=== PATIENT | female | born 1980 ===

== ENCOUNTER 2021-09-22 08:24 | Outpatient (CLI) | payer OTHER | END 2021-09-22 09:38 | disposition home or self-care (01) | LOC: PRENATAL 08:24 | PROVIDERS: ATTEND Obstetrics & Gynecology Maternal & Fetal Medicine | DX: O34.11 Maternal care for benign tumor of corpus uteri, first trimester (principal); O36.80X1 Pregnancy with inconclusive fetal viability, fetus 1; O09.511 Supervision of elderly primigravida, first trimester; Z36.89 Encounter for other specified antenatal screening; Z3A.12 12 weeks gestation of pregnancy ==

== ENCOUNTER 2021-11-12 08:16 | Outpatient (CLI) | payer OTHER | END 2021-11-12 09:16 | disposition home or self-care (01) | LOC: PRENATAL 08:16 | PROVIDERS: ATTEND Obstetrics & Gynecology Maternal & Fetal Medicine | DX: O35.0XX1 Maternal care for (suspected) central nervous system malformation in fetus, fetus 1 (principal); O35.3XX1 Maternal care for (suspected) damage to fetus from viral disease in mother, fetus 1; O98.512 Other viral diseases complicating pregnancy, second trimester; O09.512 Supervision of elderly primigravida, second trimester; Z36.89 Encounter for other specified antenatal screening; Z3A.20 20 weeks gestation of pregnancy ==

== ENCOUNTER 2022-02-01 10:36 | Outpatient (CLI) | payer OTHER | END 2022-02-01 11:15 | disposition home or self-care (01) | LOC: PRENATAL 10:36 | PROVIDERS: ATTEND Obstetrics & Gynecology Maternal & Fetal Medicine | DX: O26.849 Uterine size-date discrepancy, unspecified trimester (principal); O09.519 Supervision of elderly primigravida, unspecified trimester; Z3A.32 32 weeks gestation of pregnancy ==

== ENCOUNTER 2022-03-24 17:44 | Inpatient (IN) | payer OTHER ==
[~2022-03-24] VITALS: Ht 160 cm; Wt 2.7 kg
[2022-03-24] MEDS ORDERED: PRENATAL TABLE1 EAC1 PO (18:37)
[2022-03-28] MEDS ORDERED: PERCOCET 5-3251 EACH PO (15:04)
[2022-03-28] MEDS ORDERED: COLACE100 MG PO (15:04)
[2022-03-28] MEDS ORDERED: IBUPROFEN800 MG PO (15:04)
[2022-03-28] MEDS ORDERED: SIMETHICONE80 MG PO (15:04)
== END 2022-03-28 15:27 | disposition home or self-care (01) | DRG 788 ==
LOC: LDR 17:44 → OB/GYN 03-25 22:04 → O/R 03-25 22:12 → LDR 03-25 22:22 → SURG-SUITE 03-26 14:33
PROVIDERS: ADMIT Obstetrics & Gynecology; ATTEND Obstetrics & Gynecology
PROC: 4A1HXCZ Monitoring of Products of Conception, Cardiac Rate, External Approach (ICD-10-PCS; 2022-03-24)
PROC: 10D00Z1 Extraction of Products of Conception, Low, Open Approach (ICD-10-PCS; principal; 2022-03-25 19:45)
DX: O62.0 Primary inadequate contractions (principal); O34.13 Maternal care for benign tumor of corpus uteri, third trimester; D25.0 Submucous leiomyoma of uterus; D25.2 Subserosal leiomyoma of uterus; Z37.0 Single live birth; Z20.822 Contact with and (suspected) exposure to COVID-19; Z3A.39 39 weeks gestation of pregnancy